=== PATIENT | female | born 1990 | race Caucasian/White ===

== ENCOUNTER → 2024-03-23 | Outpatient (CLI) | payer MEDICARE ==
[2024-03-23 13:08] VITALS: BP 123/81; PULSE 89; RESP 16; TEMP 98.6
--- NOTE | 2024-03-25 09:18 | P.PAINPG ---
PQRS Measure Charge Sheet Comment: HISTORY OF PRESENT ILLNESS: A 33 yr old female as a referral from Dr Calderon presents today w severe and chronic LBP and tailbone pain secondary to DDD, spondylosis and facet arthropathy without myelopathy, BL Sacroiliitis for evaluation. Pt states pain level is provoked at 7 /10 in intensity, intermittent, localized in the R lower lumbar spine, sharp in character w occasional radiation towards the buttocks and LEs. Pain is provoked by sitting and laying supine. Pain is alleviated by PT x 6 wks which ended in 2021, physician guided home exercises daily since 2021. ice, medications ([place], Zanaflex), BioFreeze topical, repositioning and rest. Pt has had severe and debilitating anxiety on the OR table for ESIs and joint injections and can not tolerate the procedure without mild IV sedation. Oswestry axial pain score at 23. PMH: OA, HTN, IDDM II, Seasonal Allergies, GERD, Autism Adrenal Adenoma, IBS, OLGA LIDIA PSH: Colonoscopy, D &C, EGD, Gastric Outlet Reduction, Nasal Septum Surgery SH: Never smoker, No ETOH abuse, No illicit drug use FH: Non contributory All: See list Meds: See list REVIEW OF ORGAN SYSTEMS: CONSTITUTIONAL: No fevers or chills. No recent weight loss. NEUROLOGICAL: + numbness and tingling along the distal extremities. No seizure disorders or headaches. MUSCULOSKELETAL: + pain PSYCHIATRIC: Denies current depression or suicidal thoughts. Physical Examinations : Constitutional : Cooperative , not in acute distress . Neurologic : Cranial nerve II to XII intact. No focal neurological deficits. Psychiatric : alert & oriented x 3. Matching mood & appropriate affect. Judgment & insight intact. Musculoskeletal : Cervical Spine Motor strength in the deltoid and biceps: Normal right side. Normal Left side Motor strength biceps and the wrist extensors: Normal right side . Normal left side Motor strength in the triceps muscle: Normal right side. Normal left side Deep tendon reflexes: Normal at the biceps. Normal at Brachioradialis. Normal at triceps Vertebral body tenderness to deep palpation over Cervical facet loading test: positive bilaterally Spurling test: positive bilaterally Neck distraction test: positive bilaterally Alvin sign: positive bilaterally Lumbar spine Motor strength lower extremities ,thigh and legs 5/5 Right side , 5/5 Left side Deep tendon reflexes : Normal Knee Jerk. Normal Ankle Jerk Vertebral body tenderness over Wallace Test positive Lumbar facet Loading Test: positive Right / positive Left Range of motion of the lumbar spine Flexion 30 degrees, extension 10 degrees Straight Leg Raise test: Left/ Right positive at degrees Hussein test: positive right / positive left. Severe tenderness over the Sacroiliac joint on the Right / Left sides Gaenslen test: positive bilaterally Seated flexion test: positive bilaterally. Sacral spine : Severe tenderness over the Sacroiliac joint: right side / left side Range of motion: Flexion of the lumbar spine <60 degrees Range of motion: Extension of the lumbar spine <20 degrees Gaenslen's Test positive on R Hussein test: positive right side / left side Thigh Thrust Test R positive Sacral Thrust Test Imaging: MRI non contrast of the lumbar spine from 09/03/23 reviewed Assessment/ Plan : Moderate L4-5, L5-S1 central canal stenosis, R Sacroiliitis Recommendation of R SI injection #1. May need a series of injections for optimal pain relief. Risks, benefits of procedure discussed and patient verbalized understanding. Admits to anti- coagulant use or medical history of diabetes. Protocol for discontinuation/ continuation of medications ophelia procedure discussed. Minimal anesthesia provided, if clinically indicated, consisting of Versed and Fentanyl. All questions answered. I have spent greater than 30 minutes on patient care today. Dr Dodge was available by phone for the evaluation of this patient. The time was used to review the medical records including relevant urine studies and Prescription history (MAPs), review of the available imaging, evaluation and examination of the patient, coordination of care with the medical staff and if applicable referring physicians, as well as creation of the medical record Controlled Substance Measures - Controlled Substance Measures Is patient prescribed a controlled substance at discharge?: Yes When asked, does pt state using other controlled substances?: Yes If prescribed controlled substance>3 days was MAPS reviewed?: Prescribed <3 Days
== END ==
LOC: PNWHC3 12:11
PROVIDERS: ATTEND Specialist
DX: M46.1 Sacroiliitis, not elsewhere classified (principal); M70.70 Other bursitis of hip, unspecified hip; M54.12 Radiculopathy, cervical region; M48.07 Spinal stenosis, lumbosacral region; Z88.6 Allergy status to analgesic agent
CPT/HCPCS: 99202

== ENCOUNTER 2024-05-28 12:45 | Day surgery (SDC) | payer MEDICARE ==
[~2024-05-28 12:45] MED LIST: IOPAMIDOL M200 10 ML VIAL ONE; IOPAMIDOL M300 15ML VIAL ONE; MIDAZOLAM 2 MG/2 ML VIAL ONE; ROPIVACAINE 5MG/ML 20ML VIAL ONE; methylPREDNISolone ACETATE 80 MG/ML 1 ML VIAL ONE
[2024-05-28] MEDS ORDERED: LACTATED RINGERS 1,000 ML BAG ONE (12:59)
--- NOTE | 2024-07-07 18:20 | FL ---
EXAMINATION TYPE: FL guided pain mgmt statistic DATE OF EXAM: 06/09/2024 9:45 AM COMPARISON: Pre Operative Images if available both CT/MRI or plain film CLINICAL INDICATION: Female, 33 years old with history of RIGHT SI JOINT INJ; TECHNIQUE: FL guided pain mgmt statistic, multiple fluoroscopic images provided for procedure. Total fluoroscopy time: 24.7 seconds Total submitted images to PACS: 1 DAP: [id number] mGym2 Gycm2 uGym2 cGycm2 or equivalent. FINDINGS: Fluoroscopic images during injection for pain management demonstrate degeneration changes of the sacr oiliac joint with osteophyte formation and joint space narrowing. No evidence for fracture. No acute process identified. IMPRESSION: 1. No evidence for intraoperative complication. 2. Please see the operative/procedural note for further details. [facility], , 07/07/2024 6:17 PM
== END 2024-05-28 15:01 ==
LOC: ORPAIN 12:45
PROVIDERS: ATTEND Pain Medicine Interventional Pain Medicine
DX: M46.1 Sacroiliitis, not elsewhere classified
CPT/HCPCS: 27096; G0260; 81025; 99152

== ENCOUNTER → 2024-07-23 | Outpatient (CLI) | payer MEDICARE ==
--- NOTE | 2024-07-23 14:00 | P.PAINPG ---
PQRS Measure Charge Sheet Comment: HISTORY OF PRESENT ILLNESS: A 33 yr old female presents today w severe and chronic LBP and tailbone pain secondary to radiculopathy, spondylosis and facet arthropathy without myelopathy, BL Sacroiliitis for evaluation s/p R SI injection #1. Pt states she experienced 65 % pain relief x 3 wks s/p procedure. Pt states pain level is provoked at 4 /10 in intensity, intermittent, localized in the R lower lumbar spine, sharp in character w occasional radiation towards the buttocks and LEs. Pain is provoked by sitting and laying supine. Pain is alleviated by PT x 6 wks which ended in 2021, physician guided home exercises daily since 2021, ice, medications , BioFreeze topical, repositioning and rest. Pt has had severe and debilitating anxiety on the OR table for ESIs and joint injections and can not tolerate the procedure without mild IV sedation. Interventional procedures include R SI injection x1 Medications include [place], Zanaflex, BioFreeze Gel REVIEW OF ORGAN SYSTEMS: CONSTITUTIONAL: No fevers or chills. No recent weight loss. NEUROLOGICAL: + numbness and tingling along the distal extremities. No seizure disorders or headaches. MUSCULOSKELETAL: + pain PSYCHIATRIC: Denies current depression or suicidal thoughts. Physical Examinations : Constitutional : Cooperative , not in acute distress . Neurologic : Cranial nerve II to XII intact. No focal neurological deficits. Psychiatric : alert & oriented x 3. Matching mood & appropriate affect. Judgment & insight intact. Musculoskeletal : Cervical Spine Motor strength in the deltoid and biceps: Normal right side. Normal Left side Motor strength biceps and the wrist extensors: Normal right side . Normal left side Motor strength in the triceps muscle: Normal right side. Normal left side Deep tendon reflexes: Normal at the biceps. Normal at Brachioradialis. Normal at triceps Vertebral body tenderness to deep palpation over Cervical facet loading test: positive bilaterally Spurling test: positive bilaterally Neck distraction test: positive bilaterally Alvin sign: positive bilaterally Lumbar spine Motor strength lower extremities ,thigh and legs 5/5 Right side , 5/5 Left side Deep tendon reflexes : Normal Knee Jerk. Normal Ankle Jerk Vertebral body tenderness over Wallace Test positive Lumbar facet Loading Test: positive Right / positive Left Range of motion of the lumbar spine Flexion 30 degrees, extension 10 degrees Straight Leg Raise test: Left/ Right positive at degrees Hussein test: positive right / positive left. Severe tenderness over the Sacroiliac joint on the Right / Left sides Gaenslen test: positive bilaterally Seated flexion test: positive bilaterally. Sacral spine : Severe tenderness over the Sacroiliac joint: right side / left side Range of motion: Flexion of the lumbar spine <60 degrees Range of motion: Extension of the lumbar spine <20 degrees Gaenslen's Test positive on R Hussein test: positive right side / left side Thigh Thrust Test R positive Sacral Thrust Test Imaging: MRI non contrast of the lumbar spine from 09/03/23 reviewed Assessment/ Plan : Moderate L4-5, L5-S1 central canal stenosis, R Sacroiliitis Will manage residual pain and may RTC on an as needed basis. All questions answered. I have spent greater than 30 minutes on patient care today. Dr Dodge was available by phone for the evaluation of this patient. The time was used to review the medical records including relevant urine studies and Prescription history (MAPs), review of the available imaging, evaluation and examination of the patient, coordination of care with the medical staff and if applicable referring physicians, as well as creation of the medical record PQRS Narrative: Hx Alcohol Use (MH) No Home Medications: Ambulatory Orders diazePAM [Valium] 5 mg PO DAILY PRN 1 Days #2 tab 03/23/24 Controlled Substance Measures - Controlled Substance Measures Is patient prescribed a controlled substance at discharge?: No
[2024-07-23 14:01] VITALS: BP 131/84; PULSE 61; RESP 16; TEMP 98.6
== END ==
LOC: PNWHC3 13:06
PROVIDERS: ATTEND Specialist
DX: M46.1 Sacroiliitis, not elsewhere classified (principal); M48.07 Spinal stenosis, lumbosacral region; Z88.6 Allergy status to analgesic agent
CPT/HCPCS: 99211